=== PATIENT | male | born 1955 | race Caucasian/White ===

== ENCOUNTER 2016-06-09 17:09 | Emergency (ER) | payer OTHER ==
[~2016-06-09 17:09] MED LIST: LISINOPRIL10 MG PO; NORVASC10 MG PO; ORUDIS75 M1 PO; VICODIN PO; ZANTAC150 M1 PO
== END 2016-06-09 17:20 | disposition home or self-care (01) ==
LOC: CFTX 17:09
DX: M79.671 Pain in right foot (principal); E78.5 Hyperlipidemia, unspecified; I10 Essential (primary) hypertension; F17.210 Nicotine dependence, cigarettes, uncomplicated; Z98.890 Other specified postprocedural states
CPT/HCPCS: 29540; 99283